=== PATIENT | female | born 1965 | race African-American/Black ===

== ENCOUNTER 2022-05-20 16:44 | Emergency (ER) | payer MEDICAID ==
[2022-05-20] MEDS ORDERED: SODIUM CHLORIDE 0.9% 1,000 ML IV STA (17:03)
[2022-05-20] MEDS ORDERED: ONDANSETRON 4 MG/2 ML VIAL IVP STA (17:03)
[2022-05-20] MEDS ORDERED: HYDROmorphone 1 MG/ML CARPUJECT IVP STA (17:03)
--- NOTE | 2022-05-20 17:04 | ED Physician Documentation ---
PD HPI ABD PAIN - Stated complaint Stated Complaint: N/V - Chief complaint Chief Complaint: Abd Pain - History obtained from History obtained from: Patient - Additional information Additional information: 57-year-old woman with history of stage IV uterine cancer diagnosed January of last year. She is getting her cancer treatment at [facility]. It currently consists of Keytruda and she just finished 2 weeks worth of radiation therapy. She has chronic diarrhea from the Keytruda but today presents with vomiting and abdominal pain starting today. She did have a bowel obstruction in the spring necessitating a small bowel resection. No sick contacts. No fevers. She tried Zofran this morning which was ineffective. Review of Systems Ten Systems: 10 systems reviewed and negative Constitutional: denies: Fever, Chills, Myalgias Cardiac: denies: Chest pain / pressure, Palpitations Respiratory: denies: Dyspnea, Cough PD PAST MEDICAL HISTORY - Present Medications Home Medications: Ambulatory Orders Medication Instructions Recorded Confirmed Colesevelam HCl [Welchol] 625 mg PO DAILY 05/20/22 05/20/22 Hydroxychloroquine [Plaquenil] 200 mg PO DAILY 05/20/22 05/20/22 Metoclopramide [Reglan] 10 mg PO Q6H PRN #20 tablet 05/20/22 Ondansetron [Ondansetron Odt] 8 mg SL Q8HR 05/20/22 05/20/22 PredniSONE [PredniSONE INTENSOL] 5 mg PO DAILY 05/20/22 05/20/22 - Allergies Allergies/Adverse Reactions: Allergies Allergy/AdvReac Type Severity Reaction Status Date / Time No Known Drug Allergies Allergy Verified 05/20/22 16:54 PD ED PE NORMAL - Vitals Vital signs reviewed: Yes - General General: Alert and oriented X 3, Other (She looks uncomfortable) - Cardiac Cardiac: RRR, No murmur - Respiratory Respiratory: No respiratory distress, Clear bilaterally - Abdomen Abdomen: Soft, Other (Slightly hyperactive bowel sounds, mild diffuse tenderness without surgical signs.) - Back Back: No CVA TTP, No spinal TTP - Derm Derm: Normal color, Warm and dry - Extremities Extremities: No edema, No calf tenderness / cord - Neuro Neuro: Alert and oriented X 3, Normal speech Results - Vitals Vitals: Vital Signs - 24 hr 05/20/22 05/20/22 05/20/22 16:49 17:23 19:00 Temperature 37.0 C 37.0 C Heart Rate 109 H 86 82 Respiratory 16 20 16 Rate Blood Pressure 105/81 H 125/85 H 122/80 O2 Saturation 98 98 100 Oxygen O2 Source Room air - Labs Labs: Laboratory Tests 05/20/22 05/20/22 05/20/22 17:17 17:17 17:17 WBC 4.4 L RBC 3.84 L Hgb 11.1 L Hct 34.8 L MCV 90.6 MCH 28.9 MCHC 31.9 L RDW 12.2 Plt Count 181 MPV 10.4 Neut # (Auto) 2.9 Lymph # (Auto) 0.5 L [place] # (Auto) 0.7 Eos # (Auto) 0.2 Baso # (Auto) 0.0 Absolute Nucleated RBC 0.00 Nucleated RBC % 0.0 Sodium 136 Potassium 3.5 Chloride 102 Carbon Dioxide 27 Anion Gap 7.0 BUN 10 Creatinine 0.8 Estimated GFR (MDRD) 74 L Glucose 99 Lactic Acid 0.7 Calcium 9.1 Total Bilirubin 0.9 AST 15 ALT 12 Alkaline Phosphatase 47 Total Protein 6.8 Albumin 3.4 Globulin 3.4 Albumin/Globulin Ratio 1.0 Lipase 31 PD Medical Decision Making - ED course ED course: 57-year-old woman with history of metastatic uterine cancer undergoing chemo presents with vomiting. Also abdominal pain. After the administration of 1 mg of Dilaudid and 4 mg of IV Zofran she felt much better. CT and labs were relatively unremarkable. She passed a p.o. challenge here. Departure - Departure Disposition: Home, Self Care Clinical Impression: Vomiting, Abdominal pain Condition: Good Instructions: ED Abdominal Pain Female Non-Specific Abdominal Pain Prescriptions: Metoclopramide [Reglan] 10 mg PO Q6H PRN #20 tablet PRN Reason: nausea or headache Comments: I suspect that the cause of your symptoms today was adhesions, your CAT scan was otherwise normal. Clear liquid diet for the next day, follow-up with your doctor on Sunday for recheck. Return for new or worsening symptoms. Discharge Date/Time: 05/20/22 19:10
[2022-05-20 17:26] LABS: BASOPHILS % (AUTO) 0.2 %; EOSINOPHILS # (AUTO) 0.2 10^3/uL (0.0-0.7); EOSINOPHILS % (AUTO) 5.4 %; HCT - HEMATOCRIT 34.8 % (37.0-47.0); HGB - HEMOGLOBIN 11.1 g/dL (12.0-16.0); LYMPHOCYTES # (AUTO) 0.5 10^3/uL (1.5-3.5); LYMPHOCYTES % (AUTO) 11.5 %; MEAN CORPUSCULAR HEMOGLOBIN 28.9 pg (27.0-31.0); MEAN CORPUSCULAR HGB CONC 31.9 g/dL (32.0-36.0); MEAN CORPUSCULAR VOLUME 90.6 fL (81.0-99.0); MEAN PLATELET VOLUME 10.4 fL (7.9-10.8); MONOCYTES # (AUTO) 0.7 10^3/uL (0.0-1.0); MONOCYTES % (AUTO) 16.3 %; NEUTROPHILS # (AUTO) 2.9 10^3/uL (1.5-6.6); NEUTROPHILS % (AUTO) 66.4 %; PLT - PLATELET COUNT 181 10^3/uL (130-450); RED BLOOD COUNT 3.84 10^6/uL (4.20-5.40); RED CELL DISTRIBUTION WIDTH 12.2 % (12.0-15.0); WHITE BLOOD COUNT 4.4 x10^3/uL (4.8-10.8)
[2022-05-20 17:36] LABS: ALBUMIN 3.4 g/dL (3.2-5.5); BILIRUBIN,TOTAL 0.9 mg/dL (0.2-1.0); CALCIUM 9.1 mg/dL (8.5-10.3); CREATININE 0.8 mg/dL (0.4-1.0); POTASSIUM 3.5 mmol/L (3.5-5.0); TOTAL PROTEIN 6.8 g/dL (6.7-8.2)
[2022-05-20] MEDS ORDERED: iohexoL-300 100 ML VIAL ONE (17:41)
[2022-05-20] MEDS ORDERED: iohexoL-300 100 ML VIAL IVP ONE (18:09)
--- NOTE | 2022-05-20 18:18 | CT Report ---
PROCEDURE: ABDOMEN/PELVIS W INDICATIONS: IV only, abd pain CONTRAST: 100omni 300 TECHNIQUE: After the administration of intravenous contrast, 5 mm thick sections acquired from the diaphragms to the symphysis. 5 mm thick coronal and sagittal reformats were acquired. For radiation dose reducti on, the following was used: automated exposure control, adjustment of mA and/or kV according to emmanuelle ent size. COMPARISON: None. FINDINGS: Partially visualized lung bases are clear. Normal CT appearance of the liver and spleen. Pancreas unremarkable. No adrenal gland nodular mass. G allbladder normal. No urinary tract calculus, hydronephrosis, or hydroureter. No abnormally dilated or obviously thickened loop of bowel. No pericolonic or mesenteric inflammatory changes identified. Closely associated bowel loops inferior abdomen and upper pelvis adjacent to the midline laparotomy scar with no associated free air or subcutaneous emphysema. Small bowel anastomos is noted. Configuration of these closely opposed bowel loops raises some concern for possible adhesio ns although there is is not definitive and there is no evidence of small bowel obstruction. Urinary bladder grossly normal. No pelvic or inguinal lymphadenopathy. No suspicious lytic or blastic osseous lesion. IMPRESSION: No acute finding. Changes of midline laparotomy and bowel anastomosis with close association of numerous bowel loops in the lower abdomen and upper pelvis which raises concern for possible adhesions although there is no evidence of significant inflammation or obstruction. Reviewed by: Kai Coulter MD on 05/20/2022 6:17 PM PST Approved by: Kai Coulter MD on 05/20/2022 6:17 PM PST Station ID: [id number]
[2022-05-20 19:11] VITALS: BP 122/80
== END 2022-05-20 19:10 | disposition home or self-care (01) ==
LOC: ED 16:44
DX: R11.0 Nausea (principal); R10.9 Unspecified abdominal pain; C55 Malignant neoplasm of uterus, part unspecified
CPT/HCPCS: 36415; 74177; 80053; 83605; 83690; 85025; 96374; 96375; 99282; 99285; J1170; Q9967

== ENCOUNTER 2022-05-22 16:04 | Emergency (ER) | payer MEDICAID ==
[2022-05-22] MEDS ORDERED: SODIUM CHLORIDE 0.9% 1,000 ML IV STA ×2 (16:16→17:32)
[2022-05-22 16:42] LABS: BASOPHILS % (AUTO) 0.3 %; EOSINOPHILS # (AUTO) 0.2 10^3/uL (0.0-0.7); EOSINOPHILS % (AUTO) 6.8 %; HCT - HEMATOCRIT 32.1 % (37.0-47.0); HGB - HEMOGLOBIN 10.4 g/dL (12.0-16.0); LYMPHOCYTES # (AUTO) 0.7 10^3/uL (1.5-3.5); LYMPHOCYTES % (AUTO) 24.3 %; MEAN CORPUSCULAR HEMOGLOBIN 28.9 pg (27.0-31.0); MEAN CORPUSCULAR HGB CONC 32.4 g/dL (32.0-36.0); MEAN CORPUSCULAR VOLUME 89.2 fL (81.0-99.0); MEAN PLATELET VOLUME 10.5 fL (7.9-10.8); MONOCYTES # (AUTO) 0.9 10^3/uL (0.0-1.0); MONOCYTES % (AUTO) 29.1 %; NEUTROPHILS # (AUTO) 1.2 10^3/uL (1.5-6.6); NEUTROPHILS % (AUTO) 39.2 %; PLT - PLATELET COUNT 165 10^3/uL (130-450)
--- NOTE | 2022-05-22 16:43 | ED Physician Documentation ---
PD HPI NVD - Stated complaint Stated Complaint: V/D,STOMACH PX - Chief complaint Chief Complaint: Abd Pain - History obtained from History obtained from: Patient, Family - History of Present Illness Timing - onset: How many days ago (several days) Timing - duration: Days (several) Pain level max: 8 Pain level now: 8 Associated symptoms: No: Fever, Chest pain, Hematemesis, Melena, Hematochezia Contributing factors: No: Sick contact, Bad food, Travel, Recent antibiotics - Additonal information Additional information: Patient is a 57-year-old female who presents to the emergency department with diarrhea today. She states that she has stage IV uterine cancer, undergoing treatment with Keytruda. She states that she had radiation therapy that ended just before . She is also complaining of abdominal cramping. She is not having any vomiting. She states she has been able to eat and drink today. No blood in the stool. She is requesting IV fluids and pain medication. Review of Systems Constitutional: denies: Fever, Chills Respiratory: denies: Cough GI: denies: Nausea, Vomiting, Hematemesis, Bloody / black stool Skin: denies: Rash Musculoskeletal: denies: Neck pain, Back pain Neurologic: denies: Headache PD PAST MEDICAL HISTORY - Past Medical History Past Medical History: Yes Other Past Medical History: stage IV uterine cancer - Past Surgical History Other past surgical history: bowel surgery - Present Medications Home Medications: Ambulatory Orders Medication Instructions Recorded Confirmed Colesevelam HCl [Welchol] 625 mg PO DAILY 05/20/22 05/20/22 Hydroxychloroquine [Plaquenil] 200 mg PO DAILY 05/20/22 05/20/22 Metoclopramide [Reglan] 10 mg PO Q6H PRN #20 tablet 05/20/22 Ondansetron [Ondansetron Odt] 8 mg SL Q8HR 05/20/22 05/20/22 PredniSONE [PredniSONE INTENSOL] 5 mg PO DAILY 05/20/22 05/20/22 oxyCODONE [Roxicodone] 5 - 10 mg PO Q6H PRN #14 tablet 05/22/22 MDD 6 - Allergies Allergies/Adverse Reactions: Allergies Allergy/AdvReac Type Severity Reaction Status Date / Time No Known Drug Allergies Allergy Verified 05/20/22 16:54 - Living Situation Living Situation: reports: With family Living Arrangement: reports: At home - Social History Does the pt have substance abuse?: No - Family History Family history: reports: Non contributory PD ED PE NORMAL - Vitals Vital signs reviewed: Yes - General General: Alert and oriented X 3, No acute distress - HEENT HEENT: Moist mucous membranes - Neck Neck: Supple, no meningeal sign - Cardiac Cardiac: RRR, Strong equal pulses - Respiratory Respiratory: No respiratory distress, Clear bilaterally - Abdomen Abdomen: Soft, Non distended, Other (mild diffuse TTP, no peritoneal signs) - Derm Derm: Warm and dry - Extremities Extremities: No edema, No calf tenderness / cord - Neuro Neuro: Alert and oriented X 3 Results - Vitals Vitals: Vital Signs - 24 hr 05/22/22 05/22/22 18:18 19:30 Temperature 36.8 C 36.7 C Heart Rate 104 H 98 Respiratory 16 16 Rate Blood Pressure 135/72 H 132/79 H O2 Saturation 98 98 Oxygen O2 Source Room air - Labs Labs: Laboratory Tests 05/22/22 05/22/22 16:37 16:37 WBC 3.0 L RBC 3.60 L Hgb 10.4 L Hct 32.1 L MCV 89.2 MCH 28.9 MCHC 32.4 RDW 12.0 Plt Count 165 MPV 10.5 Neut # (Auto) 1.2 L Lymph # (Auto) 0.7 L [place] # (Auto) 0.9 Eos # (Auto) 0.2 Baso # (Auto) 0.0 Absolute Nucleated RBC 0.00 Nucleated RBC % 0.0 Sodium 132 L Potassium 3.1 L Chloride 98 L Carbon Dioxide 24 Anion Gap 10.0 BUN 9 Creatinine 0.6 Estimated GFR (MDRD) 124 Glucose 98 Calcium 8.6 Phosphorus 3.1 Magnesium 1.4 L Total Bilirubin 1.4 H AST 14 ALT < 10 L Alkaline Phosphatase 49 Total Protein 6.4 L Albumin 3.0 L Globulin 3.4 Albumin/Globulin Ratio 0.9 L Lipase 30 PD Medical Decision Making - ED course Complexity details: reviewed old records, reviewed results, re-evaluated patient, considered differential, d/w patient ED course: Patient was given IV fluids, pain medication, Dilaudid IV. She was given magnesium for hypomagnesemia. Her pain is well controlled. She is eating and drinking without difficulty. Mild hyponatremia, should improve with the IV fluids. She would like to be trialed on pain medication for home and she has an appointment with her oncologist tomorrow. Patient counseled regarding signs and symptoms for which I believe and urgent re-evaluation would be necessary. Patient with good understanding of and agreement to plan and is comfortable going home at this time This document was made in part using voice recognition software. While efforts are made to proofread this document, sound alike and grammatical errors may occur. Departure - Departure Disposition: 01 Home, Self Care Clinical Impression: Dehydration, Hypomagnesemia Diarrhea Qualifiers: Diarrhea type: unspecified type Qualified Code(s): R19.7 - Diarrhea, unspecified Condition: Good Instructions: Nausea Vomit Control, ED Dehydration Follow-Up: LONNY SIMENTAL PA-C [Primary Care Provider] - Tomorrow Prescriptions: oxyCODONE [Roxicodone] 5 - 10 mg PO Q6H PRN #14 tablet MDD 6 PRN Reason: Abdominal Pain Comments: Your prescriptions were sent to [facility] in [place]. Please make sure you are drinking plenty of fluids. Please follow-up with your oncologist tomorrow for further care. You also had your magnesium replaced tonight. Discharge Date/Time: 05/22/22 19:31
[2022-05-22 16:56] LABS: ALBUMIN/GLOBULIN RATIO 0.9 (1.0-2.2); ALKALINE PHOSPHATASE 49 IU/L (42-121); ALT ALANINE AMINOTRANSFERASE < 10 IU/L (10-60); AST ASPARTATE AMINOTRANSFERASE 14 IU/L (10-42); BILIRUBIN,TOTAL 1.4 mg/dL (0.2-1.0); BUN - BLOOD UREA NITROGEN 9 mg/dL (6-20); CALCIUM 8.6 mg/dL (8.5-10.3); CARBON DIOXIDE - CO2 24 mmol/L (21-32); CHLORIDE 98 mmol/L (101-111); CREATININE 0.6 mg/dL (0.4-1.0); GFR - MDRD 124 (>89); GLUCOSE 98 mg/dL (70-100); LIPASE 30 U/L (22-51); MAGNESIUM 1.4 mg/dL (1.7-2.8); PHOSPHORUS 3.1 mg/dL (2.5-4.6); POTASSIUM 3.1 mmol/L (3.5-5.0); SODIUM 132 mmol/L (135-145); TOTAL PROTEIN 6.4 g/dL (6.7-8.2)
[2022-05-22] MEDS ORDERED: HYDROmorphone 1 MG/ML CARPUJECT IVP STA (17:20)
[2022-05-22] MEDS ORDERED: MAGNESIUM SULFATE 2 GRAM 2 GM/50 ML BAG IV ONE (17:32)
[2022-05-22] MEDS ORDERED: oxyCODONE 5 MG TABLET PO STA (19:03)
[2022-05-22 19:31] VITALS: BP 132/79
== END 2022-05-22 19:31 | disposition home or self-care (01) ==
LOC: ED 16:04
DX: R19.7 Diarrhea, unspecified (principal); E86.0 Dehydration; E83.42 Hypomagnesemia; C55 Malignant neoplasm of uterus, part unspecified
CPT/HCPCS: 36415; 80053; 83690; 83735; 84100; 85025; 96361; 96365; 96375; 99284; A9270; J1170

== ENCOUNTER 2022-12-24 10:59 | Emergency (ER) | payer SELFPAY ==
[2022-12-24 11:16] VITALS: BP 116/70; O2SAT 98
[2022-12-24] MEDS ORDERED: HYDROmorphone 1 MG/ML CARPUJECT IVP STA (12:13)
--- NOTE | 2022-12-24 12:13 | ED Physician Documentation ---
PD HPI ABD PAIN - Stated complaint Stated Complaint: LOWER BACK PX - Chief complaint Chief Complaint: Back Pain - History obtained from History obtained from: Patient - Additional information Additional information: This is a 57-year-old female with a past medical history of uterine cancer, approximately 2 years status post total hysterectomy, who presents with left lower abdominal and groin pain. This has been going on now for a couple of weeks. She states she was seen previously around 12/12 At [facility] where she states she had a very complete work-up including labs, CT scan and pelvic ultrasound and states that they did not find any cause of her pain. She received pain medication and the pain went away for a few days and then came back. She has followed up with her oncologist for this pain in fact saw them 3 days ago and she states they were "scratching her head and not sure why this is going on." She presents today with ongoing left lower abdominal pain, similar to prior. She has not had any new symptoms such as fever, vomiting, diarrhea, dysuria urgency or frequency. She has been taking oxycodone for the pain but states that it is not helpful. Review of Systems Constitutional: reports: Reviewed and negative Throat: reports: Reviewed and negative Cardiac: reports: Reviewed and negative Respiratory: reports: Reviewed and negative GI: reports: Abdominal Pain. 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 PUMPER PANELBOARD: Hysterectomy - Present Medications Home Medications: Ambulatory Orders Medication Instructions Recorded Confirmed Colesevelam HCl [Welchol] 625 mg PO DAILY 05/20/22 12/24/22 Hydroxychloroquine [Plaquenil] 200 mg PO DAILY 05/20/22 12/24/22 oxyCODONE [Roxicodone] 5 - 10 mg PO Q6H PRN #14 tablet 05/22/22 12/24/22 MDD 6 Nitrofurantoin [Macrobid] 100 mg PO BID 5 Days #10 cap 12/24/22 - Allergies Allergies/Adverse Reactions: Allergies Allergy/AdvReac Type Severity Reaction Status Date / Time No Known Drug Allergies Allergy Verified 12/24/22 11:35 - Social History Does the pt smoke?: No Smoking Status: Never smoker Does the pt drink ETOH?: No Does the pt have substance abuse?: No Substance Use and Type: CBD oil / Products PD ED PE NORMAL - Vitals Vital signs reviewed: Yes - General General: Alert and oriented X 3, No acute distress, Well developed/nourished - HEENT HEENT: Atraumatic, Moist mucous membranes, Pharynx benign - Neck Neck: Supple, no meningeal sign, No JVD - Cardiac Cardiac: RRR, No murmur, No gallop, No rub, Other (right chest wall port) - Respiratory Respiratory: No respiratory distress, Clear bilaterally - Abdomen Abdomen: Normal bowel sounds, Soft, Non distended, No organomegaly, Other (Mild left groin pain without any palpable masses no guarding. No other abdominal tenderness to palpation.) - Back Back: No CVA TTP, No spinal TTP - Derm Derm: Normal color, Warm and dry, No rash - Extremities Extremities: No deformity, No tenderness to palpate, Normal ROM s pain - Neuro Neuro: Alert and oriented X 3 Eye Opening: Spontaneous Motor: Obeys Commands Verbal: Oriented GCS Score: 15 - Psych Psych: Normal mood, Normal affect Results - Vitals Vitals: Vital Signs - 24 hr 12/24/22 11:01 Temperature 36.8 C Heart Rate 116 H Respiratory 20 Rate Blood Pressure 116/70 O2 Saturation 98 Oxygen O2 Source Room air - Labs Labs: Laboratory Tests 12/24/22 12/24/22 12/24/22 12:18 12:32 12:32 WBC 8.3 RBC 3.05 L Hgb 8.2 L Hct 27.3 L MCV 89.5 MCH 26.9 L MCHC 30.0 L RDW 13.0 Plt Count 362 MPV 9.3 Neut # (Auto) 5.5 Lymph # (Auto) 1.5 [place] # (Auto) 1.0 Eos # (Auto) 0.3 Baso # (Auto) 0.0 Absolute Nucleated RBC 0.00 Nucleated RBC % 0.0 Sodium 136 Potassium 3.5 Chloride 101 Carbon Dioxide 31 Anion Gap 4.0 L BUN 7 Creatinine 0.7 Estimated GFR (MDRD) 104 Glucose 92 Calcium 9.3 Total Bilirubin 0.5 AST 11 ALT 9 L Alkaline Phosphatase 69 Total Protein 7.2 Albumin 3.4 Globulin 3.8 Albumin/Globulin Ratio 0.9 L Lipase 19 Urine Color YELLOW Urine Clarity CLEAR Urine pH 5.5 Ur Specific [place] >=1.030 H Urine Protein TRACE Urine Glucose (UA) NEGATIVE Urine Ketones TRACE Urine Occult Blood NEGATIVE Urine Nitrite NEGATIVE Urine Bilirubin NEGATIVE Urine Urobilinogen 1 (NORMAL) Ur Leukocyte Esterase SMALL H Urine RBC None Seen Urine WBC 11-25 H Ur Squamous Epith Cells RARE Squamous Urine Bacteria None Seen Urine Mucus Moderate Strands Ur Microscopic Review INDICATED Urine Culture Comments INDICATED PD Medical Decision Making - ED course Complexity details: reviewed results, re-evaluated patient, considered differential (UTI, kidney stone, pelvic mass, abscess, diverticulitis, . Adhesions or scar tissue.), d/w patient ED course: 57-year-old female with a past medical history of uterine cancer presents with left lower abdominal pain that has been present for a couple of weeks as described in HPI. On arrival here, patient has mild tachycardia, is afebrile and otherwise stable appearing. She does not appear toxic. Physical exam reveals some mild left groin tenderness with palpation, no other abdominal tenderness, no CVAT. We accessed her port and obtain a CBC and CMP which are stable, her hemoglobin is down a little bit to 8.2 from her prior in May of this year but I discussed this with patient and she believes this is near her baseline. She has no leukocytosis, no COLTEN. Her urinalysis suggestive of possible infection with white blood cells and leuk esterase but no bacteria. We will send this for culture and I am going to start her on Macrobid pending the culture given her symptoms. I am not convinced that this is the cause of her pain however as she has had a prior extensive work-up at another facility. She may have scar tissue, she may have chronic pain from prior surgery. She has seen her oncologist for this and I recommended she continue follow-up with them and her PCP. If persistent symptoms, they may repeat imaging. I did not get a CT today as she has had prior work-up and pain is essentially unchanged from prior and the CT scanner is not available today. I do think she is stable for discharge home at this time, she was given 1 mg of IV Dilaudid with improvement in her symptoms and she requested additional pain medication prior to discharge as she was given 1 tablet of hydrocodone. She can continue the as needed oxycodone she has at home. Return precautions reviewed in detail with the patient. Departure - Departure Disposition: Home, Self Care Clinical Impression: Lower abdominal pain of unknown etiology Urinary tract infection Qualifiers: Urinary tract infection type: acute cystitis Hematuria presence: without hematuria Qualified Code(s): N30.00 - Acute cystitis without hematuria Condition: Good Instructions: ED Abdominal Pain Female Non-Specific Abdominal Pain, ED UTI Cystitis Female Prescriptions: Nitrofurantoin [Macrobid] 100 mg PO BID 5 Days #10 cap Comments: Your labs today show a possible urinary tract infection. I am going to treat this with antibiotics but given your prior extensive work-up for this similar pain, I am not convinced that this is causing you your pain. Your pain may be due to scar tissue or adhesions from prior surgery and I recommend that you follow-up with your oncologist regarding this issue if no improvement with a course of antibiotics. If you develop fever, vomiting, or other new concerns, please return to the ER otherwise follow-up with your primary doctor and oncologist for this ongoing pelvic pain. Medication sent to [facility]
[2022-12-24 12:24] LABS: BILIRUBIN,URINE NEGATIVE (NEGATIVE); GLUCOSE, URINE (UA) NEGATIVE (NEGATIVE); KETONES,URINE (UA) TRACE mg/dL (NEGATIVE); LEUKOCYTE ESTERASE, URINE SMALL (NEGATIVE); NITRITE,URINE NEGATIVE (NEGATIVE); OCCULT BLOOD,URINE NEGATIVE (NEGATIVE); PH,URINE 5.5 PH (5.0-7.5); PROTEIN,URINE TRACE mg/dL (NEGATIVE); UROBILINOGEN,URINE 1 (NORMAL) E.U./dL (NORMAL)
[2022-12-24 12:26] LABS: CLARITY,URINE CLEAR (CLEAR)
[2022-12-24 12:35] LABS: BACTERIA,URINE None Seen /HPF (None Seen); MUCUS,URINE Moderate Strands; RBC,URINE None Seen /HPF (0-5); SQUAMOUS EPITHELIAL CELL,UR RARE Squamous (<= Few)
[2022-12-24 12:41] LABS: BASOPHILS % (AUTO) 0.4 %; EOSINOPHILS # (AUTO) 0.3 10^3/uL (0.0-0.7); EOSINOPHILS % (AUTO) 3.3 %; HCT - HEMATOCRIT 27.3 % (37.0-47.0); HGB - HEMOGLOBIN 8.2 g/dL (12.0-16.0); LYMPHOCYTES # (AUTO) 1.5 10^3/uL (1.5-3.5); LYMPHOCYTES % (AUTO) 17.8 %; MEAN CORPUSCULAR HEMOGLOBIN 26.9 pg (27.0-31.0); MEAN CORPUSCULAR VOLUME 89.5 fL (81.0-99.0); MEAN PLATELET VOLUME 9.3 fL (7.9-10.8); MONOCYTES % (AUTO) 12.2 %; NEUTROPHILS # (AUTO) 5.5 10^3/uL (1.5-6.6); NEUTROPHILS % (AUTO) 66.1 %; PLT - PLATELET COUNT 362 10^3/uL (130-450); RED BLOOD COUNT 3.05 10^6/uL (4.20-5.40); WHITE BLOOD COUNT 8.3 x10^3/uL (4.8-10.8)
[2022-12-24 12:55] LABS: ALBUMIN 3.4 g/dL (3.2-5.5); ALBUMIN/GLOBULIN RATIO 0.9 (1.0-2.2); BILIRUBIN,TOTAL 0.5 mg/dL (0.2-1.0); CALCIUM 9.3 mg/dL (8.5-10.3); CREATININE 0.7 mg/dL (0.6-1.3); POTASSIUM 3.5 mmol/L (3.5-4.5); TOTAL PROTEIN 7.2 g/dL (6.4-8.9)
[2022-12-24] MEDS ORDERED: HYDROcod/ACETAM 5/325 MG TABLET PO STA (13:20)
== END 2022-12-24 13:33 | disposition home or self-care (01) ==
LOC: ED 10:59
DX: N30.00 Acute cystitis without hematuria (principal); R10.32 Left lower quadrant pain; Z79.899 Other long term (current) drug therapy
CPT/HCPCS: 36415; 80053; 81001; 83690; 85025; 87086; 96374; 99283; 99284; A9270; J1170; 81003

== ENCOUNTER 2023-01-24 12:56 | Emergency (ER) | payer OTHER ==
--- NOTE | 2023-01-24 13:14 | ED Physician Documentation ---
PD HPI Fall - Stated complaint Stated Complaint: GLF - Chief complaint Chief Complaint: Trauma Hd/Nk - History obtained from History obtained from: Patient - History of Present Illness Mechanism of injury: Lost balance (The patient states she lost balance as she was getting up from bed during the night. She denied lightheadedness or syncope. She fell forward onto her knees and struck her lip and tooth. Here for evaluation of those. Not on any blood thinners.) Fall distance: Standing position Where injury occurred: Home Timing - onset: Last night (about 4-5 am) Injury(ies) location: Face (lower lip and tooth), Right Lower Extremity (knee), Left Lower Extremity (knee) Associated symptoms: No: LOC, AMS Worsens with: Palpation. 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 - Present Medications Home Medications: Ambulatory Orders Medication Instructions Recorded Confirmed Colesevelam HCl [Welchol] 625 mg PO DAILY 05/20/22 12/24/22 Hydroxychloroquine [Plaquenil] 200 mg PO DAILY 05/20/22 12/24/22 Oxycodone HCl/Acetaminophen 7.5 mg PO Q4HR 01/24/23 01/24/23 [Percocet 7.5-325 mg Tablet] - Allergies Allergies/Adverse Reactions: Allergies Allergy/AdvReac Type Severity Reaction Status Date / Time No Known Drug Allergies Allergy Verified 01/24/23 13:06 - Social History Does the pt smoke?: No Smoking Status: Never smoker Does the pt drink ETOH?: No Does the pt have substance abuse?: No PD ED PE NORMAL - Vitals Vital signs reviewed: Yes - General General: Alert and oriented X 3, No acute distress, Well developed/nourished - HEENT HEENT: Atraumatic, Dentition benign (right upper frontal tooth is tender to her, but no laxity nor gum lac. lower lip with superficial lac 1 cm, not crossing graciela border. ) - Neck Neck: Supple, no meningeal sign, No bony TTP, No adenopathy - Respiratory Respiratory: Other (no chestwall tenderness) - Abdomen Abdomen: Soft, Non tender - Extremities Extremities: Other (mildly tender at knee caps. Good ROM including full extension without pain nor weakness. no bony tenderness nor effuion. ) Results - Vitals Vitals: Oxygen O2 Source Room air PD Medical Decision Making - ED course Complexity details: considered differential (slip and fall without syncope. Has lower lip lac, tooth pain, and knees hurt but with good ROM. Mostly to ER at urging of her caregivers. Minimal injury and no imaging needed. ), d/w patient Departure - Departure Disposition: Home, Self Care Clinical Impression: Fall from slip, trip, or stumble, Contusion of oral cavity, initial encounter, Knee contusion Condition: Stable Record reviewed to determine appropriate education?: Yes Follow-Up: LONNY SIMENTAL PA-C [Primary Care Provider] - Comments: I do not get the sense of any significant injuries based on your description and exam. You will have soreness of the knees as the bruises resolved. For the tooth and lip, avoid firm chewing for a few days but I do not feel any obvious looseness of the tooth. Continue with usual medications. Add Tylenol if needed. Forms: PCP List Discharge Date/Time: 01/24/23 13:39
[2023-01-24 13:15] VITALS: BP 117/72; O2SAT 96
== END 2023-01-24 13:39 | disposition home or self-care (01) ==
LOC: ED 12:56
DX: S80.02XA Contusion of left knee, initial encounter (principal); S80.01XA Contusion of right knee, initial encounter; S00.532A Contusion of oral cavity, initial encounter; W01.0XXA Fall on same level from slipping, tripping and stumbling without subsequent striking against object, initial encounter
CPT/HCPCS: 99282; 99283

== ENCOUNTER 2023-04-05 14:10 | Emergency (ER) | payer OTHER ==
--- NOTE | 2023-04-05 15:00 | ED Physician Documentation ---
History of Present Illness - Stated complaint Stated Complaint: N/V/D - Chief complaint Chief Complaint: Abd Pain - History obtained from History obtained from: Patient - History of Present Illness Timing: Today Pain level max: 0 Pain level now: 0 - Additonal information Additional information: 57-year-old female presents to the emergency department with nausea and vomiting today after starting a new antibiotic. She was discharged yesterday from [facility] after she states that she received a urethral stent. She has a history of uterine cancer, unclear what stage. She states she is doing chemotherapy. All of her care is at [facility]. She states she could not keep her pain medication down today, usually takes oxycodone and morphine. No fevers. No chills. No new abdominal or back pain. No blood in the emesis. Review of Systems Constitutional: denies: Fever, Chills Ears: denies: Ear pain Nose: denies: Rhinorrhea / runny nose, Congestion Throat: denies: Sore throat Cardiac: denies: Chest pain / pressure Respiratory: denies: Dyspnea, Cough GI: reports: Nausea, Vomiting. 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 Other Past Medical History: RA - Past Surgical History General: Bowel surgery /MEDICAL ATTENDANT: Hysterectomy - Present Medications Home Medications: Ambulatory Orders Medication Instructions Recorded Confirmed Colesevelam HCl [Welchol] 625 mg PO DAILY 05/20/22 12/24/22 Hydroxychloroquine [Plaquenil] 200 mg PO DAILY 05/20/22 12/24/22 Oxycodone HCl/Acetaminophen 7.5 mg PO Q4HR 01/24/23 01/24/23 [Percocet 7.5-325 mg Tablet] - Allergies Allergies/Adverse Reactions: Allergies Allergy/AdvReac Type Severity Reaction Status Date / Time No Known Drug Allergies Allergy Verified 02/11/23 13:20 - Social History Does the pt smoke?: No Smoking Status: Never smoker Does the pt drink ETOH?: No Does the pt have substance abuse?: No PD ED PE NORMAL - Vitals Vital signs reviewed: Yes - General General: Alert and oriented X 3, No acute distress - HEENT HEENT: PERRL, Moist mucous membranes - Neck Neck: Supple, no meningeal sign - Cardiac Cardiac: RRR, Strong equal pulses - Respiratory Respiratory: No respiratory distress, Clear bilaterally - Abdomen Abdomen: Soft, Non tender, Non distended - Back Back: No CVA TTP, No spinal TTP - Derm Derm: Warm and dry - Extremities Extremities: No edema, No calf tenderness / cord - Neuro Neuro: Alert and oriented X 3 - Psych Psych: Normal mood, Normal affect Results - Vitals Vitals: Vital Signs - 24 hr 04/05/23 14:26 Temperature 36.5 C Heart Rate 100 Respiratory 18 Rate Blood Pressure 122/73 O2 Saturation 100 Oxygen O2 Source Room air - Labs Labs: Laboratory Tests 04/05/23 04/05/23 04/05/23 15:12 15:12 16:25 WBC 8.0 RBC 3.02 L Hgb 8.4 L Hct 27.1 L MCV 89.7 MCH 27.8 MCHC 31.0 L RDW 16.2 H Plt Count 389 MPV 9.0 Neut # (Auto) 6.7 H Lymph # (Auto) 0.9 L [place] # (Auto) 0.3 Eos # (Auto) 0.0 Baso # (Auto) 0.0 Absolute Nucleated RBC 0.00 Nucleated RBC % 0.0 Sodium 138 Potassium 3.3 L Chloride 102 Carbon Dioxide 26 Anion Gap 10.0 BUN 3 L Creatinine 0.5 L Estimated GFR (MDRD) 154 Glucose 90 Calcium 8.6 Total Bilirubin 0.3 AST 10 ALT 7 L Alkaline Phosphatase 64 Total Protein 6.2 L Albumin 3.2 Globulin 3.0 Albumin/Globulin Ratio 1.1 Lipase < 10 L Urine Color YELLOW Urine Clarity HAZY Urine pH 6.0 Ur Specific [place] 1.020 Urine Protein TRACE Urine Glucose (UA) NEGATIVE Urine Ketones TRACE Urine Occult Blood MODERATE H Urine Nitrite NEGATIVE Urine Bilirubin NEGATIVE Urine Urobilinogen 0.2 (NORMAL) Ur Leukocyte Esterase SMALL H Urine RBC 11-25 H Urine WBC 11-25 H Ur Squamous Epith Cells FEW Squamous Urine Bacteria Few Ur Microscopic Review INDICATED Urine Culture Comments INDICATED PD Medical Decision Making - ED course Complexity details: reviewed results, re-evaluated patient, considered differential, d/w patient, d/w family ED course: Patient was given IV fluids, IV Dilaudid, IV Zofran. Pain and nausea resolved. Tolerating p.o. without difficulty. Given a dose of IV Rocephin as it may have been the oral antibiotic that caused the nausea and vomiting today. I do not have her culture results available, recommend that she contact her doctor tomorrow to discuss changing her antibiotic. Patient is well-appearing, nontoxic. Afebrile. No evidence of sepsis. Patient counseled regarding signs and symptoms for which I believe and urgent re-evaluation would be necessary. Patient with good understanding of and agreement to plan and is comfortable going home at this time This document was made in part using voice recognition software. While efforts are made to proofread this document, sound alike and grammatical errors may occur. Departure - Departure Disposition: 01 Home, Self Care Clinical Impression: Vomiting Qualifiers: Vomiting type: unspecified Nausea presence: with nausea Qualified Code(s): R11.2 - Nausea with vomiting, unspecified Condition: Good Instructions: ED Nausea Vomiting Follow-Up: LONNY SIMENTAL PA-C [Primary Care Provider] - Within 3 Days Comments: You were given Dilaudid, Zofran and IV fluids here. I would recommend contacting your provider to discuss changing your antibiotic, they likely have a culture that is available that we will help them direct to the appropriate a ntibiotic for your urinary tract infection. Please return if you worsen. We gave you an IV dose of antibiotic today that will cover you until approximately 5 PM tomorrow Forms: PCP List
[2023-04-05 15:25] LABS: BASOPHILS % (AUTO) 0.5 %; EOSINOPHILS % (AUTO) 0.5 %; HCT - HEMATOCRIT 27.1 % (37.0-47.0); HGB - HEMOGLOBIN 8.4 g/dL (12.0-16.0); LYMPHOCYTES # (AUTO) 0.9 10^3/uL (1.5-3.5); LYMPHOCYTES % (AUTO) 11.3 %; MEAN CORPUSCULAR HEMOGLOBIN 27.8 pg (27.0-31.0); MEAN CORPUSCULAR VOLUME 89.7 fL (81.0-99.0); MONOCYTES # (AUTO) 0.3 10^3/uL (0.0-1.0); MONOCYTES % (AUTO) 3.6 %; NEUTROPHILS # (AUTO) 6.7 10^3/uL (1.5-6.6); NEUTROPHILS % (AUTO) 83.4 %; PLT - PLATELET COUNT 389 10^3/uL (130-450); RED BLOOD COUNT 3.02 10^6/uL (4.20-5.40); RED CELL DISTRIBUTION WIDTH 16.2 % (12.0-15.0)
[2023-04-05] MEDS: SODIUM CHLORIDE 0.9% 1,000 ML IV STA ×2 (15:29→15:41)
[2023-04-05] MEDS: ONDANSETRON 4 MG/2 ML VIAL IVP STA ×2 (15:30→17:12)
[2023-04-05 15:35] LABS: ALBUMIN 3.2 g/dL (3.2-5.5); ALBUMIN/GLOBULIN RATIO 1.1 (1.0-2.2); ALKALINE PHOSPHATASE 64 IU/L (42-121); ALT ALANINE AMINOTRANSFERASE 7 IU/L (10-60); AST ASPARTATE AMINOTRANSFERASE 10 IU/L (10-42); BILIRUBIN,TOTAL 0.3 mg/dL (0.2-1.0); BUN - BLOOD UREA NITROGEN 3 mg/dL (6-20); CALCIUM 8.6 mg/dL (8.5-10.3); CARBON DIOXIDE - CO2 26 mmol/L (21-32); CHLORIDE 102 mmol/L (101-111); CREATININE 0.5 mg/dL (0.6-1.3); GFR - MDRD 154 (>89); GLUCOSE 90 mg/dL (74-104); LIPASE < 10 U/L (11-82); POTASSIUM 3.3 mmol/L (3.5-4.5); SODIUM 138 mmol/L (135-145); TOTAL PROTEIN 6.2 g/dL (6.4-8.9)
[2023-04-05] MEDS: HYDROmorphone 1 MG/ML CARPUJECT IVP STA ×2 (15:38→17:13)
[2023-04-05 16:30] LABS: BILIRUBIN,URINE NEGATIVE (NEGATIVE); GLUCOSE, URINE (UA) NEGATIVE (NEGATIVE); KETONES,URINE (UA) TRACE mg/dL (NEGATIVE); LEUKOCYTE ESTERASE, URINE SMALL (NEGATIVE); NITRITE,URINE NEGATIVE (NEGATIVE); OCCULT BLOOD,URINE MODERATE (NEGATIVE); PROTEIN,URINE TRACE mg/dL (NEGATIVE); UROBILINOGEN,URINE 0.2 (NORMAL) E.U./dL (NORMAL)
[2023-04-05 16:32] LABS: CLARITY,URINE HAZY (CLEAR)
[2023-04-05 16:40] LABS: BACTERIA,URINE Few /HPF (None Seen); SQUAMOUS EPITHELIAL CELL,UR FEW Squamous (<= Few)
[2023-04-05] MEDS: cefTRIAXone 1 GM VIAL IVP STA (17:12)
[2023-04-05 17:42] VITALS: BP 135/84; O2SAT 98
== END 2023-04-05 17:35 | disposition home or self-care (01) ==
LOC: ED 14:10
DX: R11.2 Nausea with vomiting, unspecified (principal); C55 Malignant neoplasm of uterus, part unspecified; Z79.899 Other long term (current) drug therapy
CPT/HCPCS: 36415; 80053; 81001; 81003; 83690; 85025; 87086; 96374; 96375; 96376; 99283

== ENCOUNTER 2023-04-16 09:49 | Emergency (ER) | payer OTHER ==
[2023-04-16] MEDS ORDERED: ONDANSETRON 4 MG/2 ML VIAL IVP STA (10:24)
[2023-04-16] MEDS ORDERED: HYDROmorphone 1 MG/ML CARPUJECT IVP STA ×2 (10:24→13:05)
[2023-04-16] MEDS ORDERED: SODIUM CHLORIDE 0.9% 1,000 ML IV STA (10:24)
[2023-04-16 10:58] LABS: BILIRUBIN,URINE NEGATIVE (NEGATIVE); GLUCOSE, URINE (UA) NEGATIVE (NEGATIVE); KETONES,URINE (UA) NEGATIVE (NEGATIVE); LEUKOCYTE ESTERASE, URINE SMALL (NEGATIVE); NITRITE,URINE NEGATIVE (NEGATIVE); OCCULT BLOOD,URINE MODERATE (NEGATIVE); PROTEIN,URINE 30 mg/dL (NEGATIVE); UROBILINOGEN,URINE 0.2 (NORMAL) E.U./dL (NORMAL)
[2023-04-16 11:02] LABS: BASOPHILS % (AUTO) 0.5 %; EOSINOPHILS % (AUTO) 0.5 %; HCT - HEMATOCRIT 25.6 % (37.0-47.0); HGB - HEMOGLOBIN 7.8 g/dL (12.0-16.0); LYMPHOCYTES # (AUTO) 0.4 10^3/uL (1.5-3.5); LYMPHOCYTES % (AUTO) 11.7 %; MEAN CORPUSCULAR HGB CONC 30.5 g/dL (32.0-36.0); MEAN CORPUSCULAR VOLUME 91.8 fL (81.0-99.0); MEAN PLATELET VOLUME 9.8 fL (7.9-10.8); MONOCYTES # (AUTO) 0.1 10^3/uL (0.0-1.0); MONOCYTES % (AUTO) 3.2 %; NEUTROPHILS # (AUTO) 3.1 10^3/uL (1.5-6.6); NEUTROPHILS % (AUTO) 83.3 %; PLT - PLATELET COUNT 200 10^3/uL (130-450); RED BLOOD COUNT 2.79 10^6/uL (4.20-5.40); RED CELL DISTRIBUTION WIDTH 17.1 % (12.0-15.0); WHITE BLOOD COUNT 3.8 x10^3/uL (4.8-10.8)
[2023-04-16 11:09] LABS: ALBUMIN 3.4 g/dL (3.2-5.5); BILIRUBIN,TOTAL 0.6 mg/dL (0.2-1.0); CALCIUM 9.5 mg/dL (8.5-10.3); CREATININE 0.5 mg/dL (0.6-1.3); POTASSIUM 3.8 mmol/L (3.5-4.5); TOTAL PROTEIN 6.7 g/dL (6.4-8.9)
[2023-04-16 11:11] LABS: CLARITY,URINE CLEAR (CLEAR)
[2023-04-16 11:12] LABS: BACTERIA,URINE Moderate /HPF (None Seen); MUCUS,URINE Moderate Strands; SQUAMOUS EPITHELIAL CELL,UR FEW Squamous (<= Few); WBC CLUMPS,URINE PRESENT
[2023-04-16] MEDS ORDERED: HYDROmorphone 0.5 MG/0.5 ML SYRINGE IVP STA (11:29)
--- NOTE | 2023-04-16 12:01 | ED Physician Documentation ---
PD HPI ABD PAIN - Stated complaint Stated Complaint: ABD PX,DIZZY - Chief complaint Chief Complaint: Abd Pain - History obtained from History obtained from: Patient - Additional information Additional information: Patient is a 57-year-old female with a history of uterine cancer and ureter stent presenting for evaluation of worsening lower abdominal pain for the past few days. Denies nausea, vomiting or diarrhea and did have a bowel movement this morning. Denies blood in her stools. She is on pain medications at home and feels that it has not been helping with these current symptoms. Denies fever, chest pain or shortness of air. Is receiving chemotherapy and last received chemo a week ago.Her oncology is through [facility]. Review of Systems Constitutional: denies: Fever Cardiac: denies: Chest pain / pressure Respiratory: denies: Dyspnea GI: reports: Abdominal Pain. 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 - Past Surgical History General: Bowel surgery /LIFE ASSURANCE REPRESENTATIVE: Hysterectomy - Present Medications Home Medications: Ambulatory Orders Medication Instructions Recorded Confirmed Hydroxychloroquine [Plaquenil] 200 mg PO DAILY 04/16/23 04/16/23 Morphine Sulfate [Ms Contin] 15 mg PO .Q12HR 04/16/23 04/16/23 Prochlorperazine [Compazine] 10 mg PO Q6H PRN 04/16/23 04/16/23 cephALEXin [Keflex] 500 mg PO Q6H #28 cap 04/16/23 oxyCODONE [Roxicodone] 5 mg PO Q4-6H 04/16/23 04/16/23 - Allergies Allergies/Adverse Reactions: Allergies Allergy/AdvReac Type Severity Reaction Status Date / Time No Known Drug Allergies Allergy Verified 04/16/23 10:00 - Social History Does the pt smoke?: No Smoking Status: Never smoker Does the pt drink ETOH?: No Does the pt have substance abuse?: No PD ED PE NORMAL - General General: Alert and oriented X 3, No acute distress, Well developed/nourished - HEENT HEENT: Atraumatic - Neck Neck: Supple, no meningeal sign - Cardiac Cardiac: RRR, Other (Port to right chest wall) - Respiratory Respiratory: No respiratory distress, Clear bilaterally - Abdomen Abdomen: Normal bowel sounds, Soft, Non distended, Other (Lower abdominal tenderness) - Derm Derm: Warm and dry - Neuro Neuro: Normal speech Results - Vitals Vitals: Vital Signs - 24 hr 04/16/23 04/16/23 04/16/23 09:55 11:05 11:43 Temperature 37.3 C Heart Rate 120 H 97 104 H Respiratory 15 12 30 H Rate Blood Pressure 113/69 116/76 122/71 O2 Saturation 98 100 96 04/16/23 04/16/23 13:00 15:00 Temperature 37.0 C Heart Rate 90 88 Respiratory 12 14 Rate Blood Pressure 118/76 116/72 O2 Saturation 100 100 Oxygen O2 Source Room air - Labs Labs: Laboratory Tests 04/16/23 04/16/23 04/16/23 10:40 10:45 10:45 WBC 3.8 L RBC 2.79 L Hgb 7.8 L Hct 25.6 L MCV 91.8 MCH 28.0 MCHC 30.5 L RDW 17.1 H Plt Count 200 MPV 9.8 Neut # (Auto) 3.1 Lymph # (Auto) 0.4 L [place] # (Auto) 0.1 Eos # (Auto) 0.0 Baso # (Auto) 0.0 Absolute Nucleated RBC 0.00 Nucleated RBC % 0.0 Sodium 133 L Potassium 3.8 Chloride 96 L Carbon Dioxide 33 H Anion Gap 4.0 L BUN 8 Creatinine 0.5 L Estimated GFR (MDRD) 154 Glucose 105 H Calcium 9.5 Total Bilirubin 0.6 AST 11 ALT 8 L Alkaline Phosphatase 53 Total Protein 6.7 Albumin 3.4 Globulin 3.3 Albumin/Globulin Ratio 1.0 Lipase 10 L Urine Color YELLOW Urine Clarity CLEAR Urine pH 6.0 Ur Specific [place] 1.020 Urine Protein 30 H Urine Glucose (UA) NEGATIVE Urine Ketones NEGATIVE Urine Occult Blood MODERATE H Urine Nitrite NEGATIVE Urine Bilirubin NEGATIVE Urine Urobilinogen 0.2 (NORMAL) Ur Leukocyte Esterase SMALL H Urine RBC 6-10 H Urine WBC 6-10 H Urine WBC Clumps PRESENT Ur Squamous Epith Cells FEW Squamous Urine Bacteria Moderate H Urine Mucus Moderate Strands Ur Microscopic Review INDICATED Urine Culture Comments INDICATED PD Medical Decision Making - ED course Complexity details: reviewed results, re-evaluated patient, d/w patient ED course: Patient is a 57-year-old female with a history of uterine cancer presenting for evaluation of worsening lower abdominal pain. She is tachycardic which Improved with fluids and pain control. Has tenderness on exam. CBC, chemistries, urine analysis were obtained and reviewed. Has baseline anemia which is not significantly changed. Chemistries reviewed. Urine is concerning for infection. CT scan was Obtained of the abdomen and pelvis.I was able to discuss these results with both the reading radiologist as well as her oncologist and it is felt that they are not significantly different than the other scan she has had a recently with known masses seen in the pelvis. She does not have symptoms to suggest vaginal fistula. Patient denies having leakage of any fluids from the vagina. She is feeling better here after a few doses of IV Dilaudid along with Zofran and fluids. She is ambulatory to the bathroom without any difficulty. We will treat urine with antibiotics and recommend close follow-up with her oncologist. Patient is counseled on concerning symptoms to return for. [id number] - Discussed with oncology, Dr. Méndez. We reviewed today CT report and he also compared it with reports he has from recent CTs including February 23 and early March and there does not appear to be any significant difference including mentions of concerns for a fistula before. However patient does not have symptoms to suggest a fistula. Feels that she is okay for discharge and she has close follow-up with him. 1518 - Discussed with radiologist, Dr. Simms. Findings today seems similar to prior scans. Departure - Departure Disposition: 01 Home, Self Care Clinical Impression: Pelvic mass, Lower abdominal pain, UTI (urinary tract infection) Condition: Stable Instructions: ED UTI Cystitis Female Follow-Up: Antoine Méndez MD [Physician No Access] - Prescriptions: cephALEXin [Keflex] 500 mg PO Q6H #28 cap Comments: Your CT scan today shows that you have a mass in your lower pelvis versus colon. I have reviewed this with your oncologist and appears similar to findings they have seen on prior CT scans. Your testing today does show that you have a urine infection. I am [facility]. I would recommend taking the antibiotics as well as close follow-up with your oncologist. Forms: PCP List Discharge Date/Time: 04/16/23 15:52
[2023-04-16] MEDS ORDERED: cefTRIAXone 1 GM in SODIUM CHLORIDE 0.9% MINIBAG 100 ML IV STA (13:05)
[2023-04-16 13:32] VITALS: O2SAT 100
[2023-04-16] MEDS ORDERED: iohexoL-300 100 ML VIAL IVP ONE (13:51)
--- NOTE | 2023-04-16 14:04 | CT Report ---
PROCEDURE: ABDOMEN/PELVIS W INDICATIONS: worsening lower abd pain/uterine cancer/ CONTRAST: 100ml omni 300 TECHNIQUE: After the administration of intravenous contrast, 5 mm thick sections acquired from the diaphragms to the symphysis. 5 mm thick coronal and sagittal reformats were acquired. For radiation dose reducti on, the following was used: automated exposure control, adjustment of mA and/or kV according to emmanuelle ent size. COMPARISON: 02/11/2023, 05/20/2022 FINDINGS: Image quality: Excellent. Lung bases and heart: Unremarkable. Liver: No solid mass. Gallbladder and biliary tree: No radiopaque stones or wall thickening. No biliary dilation. Spleen: No splenomegaly. Pancreas: No pancreatic ductal dilation. Adrenals: No adrenal nodule. Kidneys and ureters: A left ureteral stent is now in place. There is no residual left hydronephrosis. Kidneys and ureters are unremarkable. Bowel and peritoneum: There is a portion of the sigmoid colon which has diffuse wall thickening and p ossibly polypoid masses extending into the lumen. Lines are suspicious for sigmoid carcinoma. Additio salvatore, there is significant air present in the vagina. Question possible fistula to the vagina. Uteru s is surgically absent. Lymph nodes: No central or retroperitoneal adenopathy. Vessels: No infrarenal aortic aneurysm. PELVIS Reproductive organs: Uterus is surgically absent. Significant vaginal air.. Bladder: No abnormal wall thickening, accounting for underdistension. Pelvic lymph nodes: No pelvic adenopathy by size criteria. Bones: No aggressive osseous abnormality. Other: No significant ventral or inguinal hernia. IMPRESSION: 1. Suspect malignancy involving the sigmoid. This can either be intrinsic sigmoid adenocarcinoma or d isease secondary to serosal implants. 2. Remote hysterectomy. 3. Significant air present in the vagina. Cannot exclude a fistula to the vagina. Recommend clinical correlation. 4. 4Interval placement of a left ureteral stent with resolution of left hydronephrosis. Comment: Recommend nonemergent colonoscopy for direct visualization of the sigmoid. Reviewed by: Adeel Simms MD on 04/16/2023 1:04 PM PST Approved by: Adeel Simms MD on 04/16/2023 1:04 PM PST Station ID: [id number]
[2023-04-16] MEDS ORDERED: oxyCODONE 5 MG TABLET PO STA (15:00)
[2023-04-16 15:09] VITALS: BP 116/72
== END 2023-04-16 15:52 | disposition home or self-care (01) ==
LOC: ED 09:49
DX: R19.00 Intra-abdominal and pelvic swelling, mass and lump, unspecified site (principal); R10.30 Lower abdominal pain, unspecified; N39.0 Urinary tract infection, site not specified
CPT/HCPCS: 36415; 74177; 80053; 81001; 83690; 85025; 87086; 96365; 96375; 96376; 99284; 99285; A9270; J1170; Q9967; 81003

== ENCOUNTER 2023-04-18 12:58 | Emergency (ER) | payer OTHER ==
[2023-04-18] MEDS ORDERED: SODIUM CHLORIDE 0.9% 1,000 ML IV STA (13:32)
[2023-04-18] MEDS ORDERED: ONDANSETRON 4 MG/2 ML VIAL IVP STA (13:32)
[2023-04-18] MEDS ORDERED: HYDROmorphone 2 MG TABLET PO STA (13:32)
--- NOTE | 2023-04-18 13:35 | ED Physician Documentation ---
History of Present Illness - Stated complaint Stated Complaint: ABD PX,NOT EATING - Chief complaint Chief Complaint: Abd Pain - Additonal information Additional information: 57-year-old female presents to the emergency department for evaluation of weakness, fatigue, anorexia and vomiting. She has a known history of uterine cancer status post hysterectomy currently undergoing chemotherapy through [facility]. Dr. Méndez is her oncologist. She was seen in this emergency department 04/16/2023 and had laboratory testing which showed an essentially chronic but unchanged anemia. The CT imaging showed the masses within the lower abdomen that were essentially unchanged from previous. Patient is concerned that she may need a blood transfusion or be low on potassium. For pain control at home she is taking MS 15 mg twice daily as well as oxycodone 10 mg every 4 hours. She has been using Zofran and promethazine for nausea at home which she is finding ineffective. She denies any recent fevers. Currently taking cephalexin prescribed on the for concerns of a UTI. Microbiology from that urine culture showed skin sonja most likely contaminant. Review of Systems Constitutional: denies: Fever Throat: reports: Reviewed and negative Cardiac: reports: Reviewed and negative Respiratory: reports: Reviewed and negative GI: reports: Abdominal Pain, Nausea, Vomiting. 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 - Past Surgical History General: Bowel surgery /SEWAGE PLANT SUPERVISOR: Hysterectomy - Present Medications Home Medications: Ambulatory Orders Medication Instructions Recorded Confirmed Hydroxychloroquine [Plaquenil] 200 mg PO DAILY 04/16/23 04/16/23 Morphine Sulfate [Ms Contin] 15 mg PO .Q12HR 04/16/23 04/16/23 Prochlorperazine [Compazine] 10 mg PO Q6H PRN 04/16/23 04/16/23 cephALEXin [Keflex] 500 mg PO Q6H #28 cap 04/16/23 oxyCODONE [Roxicodone] 5 mg PO Q4-6H 04/16/23 04/16/23 HYDROmorphone [Dilaudid] 2 mg PO TID PRN #20 tablet 04/18/23 - Allergies Allergies/Adverse Reactions: Allergies Allergy/AdvReac Type Severity Reaction Status Date / Time No Known Drug Allergies Allergy Verified 04/18/23 13:05 - Social History Does the pt smoke?: No Smoking Status: Never smoker Does the pt drink ETOH?: No Does the pt have substance abuse?: No PD ED PE NORMAL - General General: Alert and oriented X 3, Well developed/nourished (Thin cachectic appearance). No: No acute distress (Appears fatigued, weak and uncomfortable) - HEENT HEENT: Atraumatic, Moist mucous membranes - Cardiac Cardiac: RRR, No murmur - Respiratory Respiratory: No respiratory distress, Clear bilaterally - Abdomen Abdomen: Normal bowel sounds, Soft. No: Non tender (Generally tender abdomen though greater in the lower abdominal pelvic region. Nonperitoneal.) - Derm Derm: Normal color, Warm and dry, No rash - Extremities Extremities: No deformity - Neuro Neuro: Alert and oriented X 3, fur puller 2-12 intact Eye Opening: Spontaneous Motor: Obeys Commands Verbal: Oriented GCS Score: 15 - Psych Psych: Normal mood Results - Vitals Vitals: Vital Signs - 24 hr 04/18/23 04/18/23 04/18/23 13:06 15:08 16:25 Temperature 37.0 C 36.7 C Heart Rate 106 H 84 Heart Rate [ 79 Monitoring electrodes] Respiratory 16 15 18 Rate Blood Pressure 137/81 H 114/83 H Blood Pressure 125/74 [Left Brachial artery] O2 Saturation 100 99 98 04/18/23 04/18/23 04/18/23 16:41 17:36 18:14 Temperature 36.7 C 36.8 C Heart Rate 94 Heart Rate [ 80 89 Monitoring electrodes] Respiratory 18 18 18 Rate Blood Pressure 126/78 Blood Pressure 119/80 124/76 [Left Brachial artery] O2 Saturation 98 99 100 Oxygen O2 Source Room air - Labs Labs: Laboratory Tests 04/18/23 04/18/23 04/18/23 13:39 13:39 13:39 WBC 3.6 L RBC 2.54 L Hgb 7.2 L Hct 23.0 L MCV 90.6 MCH 28.3 MCHC 31.3 L RDW 17.1 H Plt Count 221 MPV 9.5 Neut # (Auto) 2.4 Lymph # (Auto) 0.7 L [place] # (Auto) 0.3 Eos # (Auto) 0.1 Baso # (Auto) 0.0 Absolute Nucleated RBC 0.00 Nucleated RBC % 0.0 Sodium 135 Potassium 3.2 L Chloride 97 L Carbon Dioxide 30 Anion Gap 8.0 BUN 4 L Creatinine 0.5 L Estimated GFR (MDRD) 154 Glucose 103 Calcium 9.3 Total Bilirubin 0.4 AST 8 L ALT 7 L Alkaline Phosphatase 54 Total Protein 6.6 Albumin 3.4 Globulin 3.2 Albumin/Globulin Ratio 1.1 Lipase < 10 L Blood Type Blood Type Recheck A POSITIVE Antibody Screen Crossmatch IS Only 04/18/23 14:09 WBC RBC Hgb Hct MCV MCH MCHC RDW Plt Count MPV Neut # (Auto) Lymph # (Auto) [place] # (Auto) Eos # (Auto) Baso # (Auto) Absolute Nucleated RBC Nucleated RBC % Sodium Potassium Chloride Carbon Dioxide Anion Gap BUN Creatinine Estimated GFR (MDRD) Glucose Calcium Total Bilirubin AST ALT Alkaline Phosphatase Total Protein Albumin Globulin Albumin/Globulin Ratio Lipase Blood Type A POSITIVE Blood Type Recheck Antibody Screen NEGATIVE Crossmatch IS Only See Detail PD Medical Decision Making - ED course Complexity details: reviewed results, re-evaluated patient, d/w patient ED course: 57-year-old female has a history of uterine cancer currently undergoing chemotherapy through [facility] return to the emergency department for evaluation of worsening fatigue and weakness. She is also had some vomiting over the last 24 hours. Seen in this ER [address] imaging that was essentially unchanged from February 2023 imaging. The patient was concerned that she was having worsening anemia or even hypokalemia. Here in the emergency department a CBC today shows a hemoglobin of 7.2 this is a drop from 7.948 hours ago. The patient seems to typically live in the 9 range. Given the symptoms of worsening fatigue and exertional shortness of air I did administer her 1 unit of packed red blood cells and on reevaluation patient was feeling markedly better. Her electrolytes revealed mildly low potassium of 3.2. This was repleted with 50 of potassium orally. Patient is already taking 15 mg of MS Contin twice daily as well as oxycodone 10 mg every 4-6 hours. She was initially administered Dilaudid 2 mg orally which helped with her pain for several hours. During the course of the ED visit however she did receive IV fentanyl and IV Dilaudid as well. On reevaluation patient feels markedly better and feels comfortable with discharge home. She will follow closely with Dr. De Leon her oncologist. In the interim I am going to prescribe a limited amount of oral Dilaudid in addition to the oxycodone and MS Contin that she is already taken. Patient is aware of the risk of multiple opioid use and does have Narcan available at home. I am prescribing a short course of short-acting opioid pain medication for this patient. 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 I have discussed that the opioids are for short term therapy only, and will not be refilled from the ED. Departure - Departure Disposition: Home, Self Care Clinical Impression: Symptomatic anemia, Hypokalemia Uterine cancer Qualifiers: Malignant neoplasm of uterus location: unspecified site of uterus Qualified Code(s): C55 - Malignant neoplasm of uterus, part unspecified Abdominal pain Qualifiers: Abdominal location: generalized Qualified Code(s): R10.84 - Generalized abdominal pain Nausea and vomiting Qualifiers: Vomiting type: unspecified Qualified Code(s): R11.2 - Nausea with vomiting, unspecified Condition: Serious Prescriptions: HYDROmorphone [Dilaudid] 2 mg PO TID PRN #20 tablet PRN Reason: Pain >8 Comments: Chen you did receive 1 unit of packed red blood cells today in the ER. Your hemoglobin was 7.2. We also are going to prescribe you small amount of Dilaudid and oral pain medicine that you can use in conjunction with your morphine and oxycodone. Use this sparingly and only if you find that your usual medications are not improving your pain. Be aware that there is a risk of opioid overuse so keep your Narcan readily available should you find yourself excessively sleepy or lethargic with the medications. It is critical that you discuss this ED visit with Dr. Abrams. He may elect to have your labs repeated sooner rather than later. He should also be directing y our longer-term pain management Return to the ER for any new or worsening symptoms. I wish you well in your journey. Forms: PCP List
[2023-04-18 13:50] LABS: BASOPHILS % (AUTO) 0.8 %; EOSINOPHILS # (AUTO) 0.1 10^3/uL (0.0-0.7); EOSINOPHILS % (AUTO) 1.9 %; HGB - HEMOGLOBIN 7.2 g/dL (12.0-16.0); LYMPHOCYTES # (AUTO) 0.7 10^3/uL (1.5-3.5); LYMPHOCYTES % (AUTO) 19.9 %; MEAN CORPUSCULAR HEMOGLOBIN 28.3 pg (27.0-31.0); MEAN CORPUSCULAR HGB CONC 31.3 g/dL (32.0-36.0); MEAN CORPUSCULAR VOLUME 90.6 fL (81.0-99.0); MEAN PLATELET VOLUME 9.5 fL (7.9-10.8); MONOCYTES # (AUTO) 0.3 10^3/uL (0.0-1.0); MONOCYTES % (AUTO) 9.1 %; NEUTROPHILS # (AUTO) 2.4 10^3/uL (1.5-6.6); NEUTROPHILS % (AUTO) 67.7 %; PLT - PLATELET COUNT 221 10^3/uL (130-450); RED BLOOD COUNT 2.54 10^6/uL (4.20-5.40); RED CELL DISTRIBUTION WIDTH 17.1 % (12.0-15.0); WHITE BLOOD COUNT 3.6 x10^3/uL (4.8-10.8)
[2023-04-18 14:37] LABS: ALBUMIN 3.4 g/dL (3.2-5.5); ALBUMIN/GLOBULIN RATIO 1.1 (1.0-2.2); ALKALINE PHOSPHATASE 54 IU/L (42-121); ALT ALANINE AMINOTRANSFERASE 7 IU/L (10-60); AST ASPARTATE AMINOTRANSFERASE 8 IU/L (10-42); BILIRUBIN,TOTAL 0.4 mg/dL (0.2-1.0); BUN - BLOOD UREA NITROGEN 4 mg/dL (6-20); CALCIUM 9.3 mg/dL (8.5-10.3); CARBON DIOXIDE - CO2 30 mmol/L (21-32); CHLORIDE 97 mmol/L (101-111); CREATININE 0.5 mg/dL (0.6-1.3); GFR - MDRD 154 (>89); GLUCOSE 103 mg/dL (74-104); POTASSIUM 3.2 mmol/L (3.5-4.5); SODIUM 135 mmol/L (135-145); TOTAL PROTEIN 6.6 g/dL (6.4-8.9)
[2023-04-18 14:38] LABS: LIPASE < 10 U/L (11-82)
[2023-04-18] MEDS ORDERED: POTASSIUM BICARB 25 MEQ TABLET PO STA (14:43)
[2023-04-18] MEDS ORDERED: fentaNYL 100 MCG/2 ML VIAL IVP STA (15:05)
[2023-04-18] MEDS ORDERED: ONDANSETRON ODT 4 MG TABLET TL STA (17:22)
[2023-04-18] MEDS ORDERED: HYDROmorphone 1 MG/ML CARPUJECT IVP STA (18:05)
[2023-04-18 18:45] VITALS: BP 115/68; O2SAT 99
== END 2023-04-18 18:58 | disposition home or self-care (01) ==
LOC: ED 12:58
DX: C55 Malignant neoplasm of uterus, part unspecified (principal); D63.0 Anemia in neoplastic disease
CPT/HCPCS: 36415; 36430; 80053; 83690; 85025; 86850; 86900; 86901; 86920; 96361; 96374; 96375; 99284; 99285; A9270; J1170; P9016; Q0162